=== PATIENT | female | born 1970 | race Caucasian/White ===

== ENCOUNTER 2017-06-20 19:09 | Emergency (ER) | payer MEDICAID ==
[~2017-06-20] VITALS: Wt 81.9 kg
[2017-06-20] MEDS ORDERED: KETOROLAC 30 MG INJ IM STA (20:05)
[2017-06-20] MEDS ORDERED: ASPI-826 PO (20:30)
--- NOTE | 2017-06-20 20:41 | ERD ---
ER Documentation Chief Complaint Chief Complaint c/o high bp/headache x 1 week HPI 46-year-old female complaining of headache 1 day. Patient stated that she had history of hypertension. She was given lisinopril by her PCP 1 month ago. She help a dry cough while on lisinopril. Her PCP changed her prescription to losartan a days ago. She reports getting headaches while taking losartan. Yesterday, her PCP changed her medication to amlodipine. She took amlodipine this morning. She did not have a headache after taking the medication. However , she started developing a headache around midday today. Described headache as a pressure-like sensation on top of her head. She took 2 Tylenols at home, and it helped some. But the headache has returned. She reports slight photophobia and occasional blurred vision. Denies nausea or vomiting. Denies fever or chills. Denies numbness, tingling, or weakness in her extremities. Denies chest pain. Denies palpitations. ROS All systems reviewed and are negative except as per history of present illness. Medications Home Meds Active Scripts Aspirin/Acetaminophen/Caffeine (Excedrin Extra Strength Caplet) 1 Each Tablet, 1 EACH PO Q6 Y for HEADACHE, #30 TAB Prov:THOM DUMONT Cathi SUBMARINE DIVER 06/20/17 Allergies Allergies: Coded Allergies: No Known Drug Allergies (Verified Allergy, Unknown, 06/20/17) PMhx/Soc Medical and Surgical Hx: pt denies Surgical Hx Hx Cardiac Disorders: Yes (HTN) Hx Miscellaneous Medical Probl: Yes (PRE-DM) Hx Alcohol Use: No Hx Substance Use: No Hx Tobacco Use: No Smoking Status: Never smoker Physical Exam Vitals Vital Signs Date Time Temp Pulse Resp B/P Pulse Ox O2 Delivery O2 Flow Rate FiO2 06/20/17 19:17 96.6 95 20 171/93 99 Physical Exam General: Well-developed, well-nourished, conscious and coherent, in no distress Skin: Warm and dry without rash, good texture and turgor Head: Normocephalic without evidence of trauma Eyes: Sclera and conjunctivae normal; pupils equal, round, and reactive to light; extraocular movements are intact. Bilateral sternocleidomastoid and upper trapezius muscle spasm noted. Neck: Supple without meningismus or adenopathy. Carotids are equal. Trachea midline. No bruits or JVD Chest: Normal AP diameter. Good expansion without retractions. Nontender. Lungs are clear to auscultate bilaterally with good tidal volume Heart: Regular rate and rhythm. No murmur, rub, or gallops heard Extremities: Full range of motion. Good strength bilaterally. No clubbing, cyanosis, or edema. Peripheral pulses are intact. Sensation intact Neuro: Alert and oriented 4; GCS 15. Cranial nerves II - XII intact. Motor sensory exam nonfocal. Moves all extremities. Deep tendon reflexes 2+ in all extremities. Speech clear. No pronator drift. Gait steady. Results 24 hrs Current Medications Medications (Trade) Dose Ordered Sig/Suzie Route PRN Reason Start Time Stop Time Status Last Admin Dose Admin Ketorolac Tromethamine (Toradol) 30 mg ONCE STAT IM 06/20/17 20:05 06/20/17 20:06 DC 06/20/17 20:13 Procedures/MDM Well-appearing 46-year-old female presented ED with headache 1 day. Patient has similar headaches in the past. Toradol IM given to the patient in the ED for pain. Patient reports improvement of headache after Toradol. Her headache is likely a tension type. Differentials include but not limited to migraine, cluster headache, tension headache, sinus or dental infection, TMJ syndrome, pseudotumor cerebri, meningitis, encephalitis, giant cell arteritis, glaucoma, subarachnoid hemorrhage, subdural or epidural hematoma, intracranial bleeding or tumor. Patient has history of hypertension, has recently changed her blood pressure medications. Patient blood pressure on presentation was 171/93 today. I feel this is due to her recent medication is not adequately controlling her blood pressure. I doubt the patient has hypertensive emergency. Patient has follow- up appointment with her PCP tomorrow. I have advised patient to discuss with her PCP on adjusting her blood pressure managed vacation to obtain adequate control. I do not feel emergent blood pressure control today is indicated. Patient appears well, stable for discharge and outpatient management. Medical decision making shared with patient and family. Education provided to patient and family. Patient and family expressed understanding of the plan. Medications on discharge: Excedrin. Follow-up: Primary care provider in 2-3 days or return to ED if worse. Disclaimer: Inadvertent spelling and grammatical errors are likely due to EHR/ dictation software use and do not reflect on the overall quality of patient care. Also, please note that the electronic time recorded on this note does not necessarily reflect the actual time of the patient encounter. Departure Diagnosis: Primary Impression: Headache Headache type: tension-type Headache chronicity pattern: acute headache Intractability: not intractable Qualified Code: G44.209 - Acute non intractable tension-type headache Additional Impression: HTN (hypertension) Hypertension type: essential hypertension Qualified Code: I10 - Essential hypertension Condition: Stable Patient Instructions: Self-Care for Headaches [facility] Usted se quinones hecho un examen mdico de control que le indica que no est en arleth condicin que requiera tratamiento urgente en el Departamento de Emergencia. Un estudio ms profundo y el tratamiento de alvarado condicin pueden esperar sin ningn riesgo hasta que usted sea atendida/o en el consultorio de alvarado mdico o arleth cl ahsan. Es responsabilidad suya arreglar arleth hannah para el seguimiento del annabella. MANEJO DE CONDICIONES NO URGENTES EN EL FUTURO 1) Si usted tiene un mdico de atencin primaria: Usted debera llamar a alvarado mdico de atencin primaria antes de venir al departamento de emergencia. Despus de las horas de consultorio, alvarado doctor o alvarado asociado/a est disponible por telfono. El mdico o enfermero de filipe en el servicio telefnico puede asesorarle por damion medio para atender el problema, o annabella contrario se puede programar arleth hannah. 2) Si usted no tiene un mdico de atencin primaria: Llame al mdico o clnica de referencia que aparece abajo beverly las horas de consultorio para hacer arleth hannah para que le vean. CLINICAS: [facility] 920 [phone] [address] [facility] 917 [phone] [address] [facility] 240 [phone] [address] [facility] [phone] [facility] [phone] [address] [facility]. [phone] [address] Additional Instructions: Llame al doctor MAANA y chelsea arleth HANNAH PARA DENTRO DE 1-2 HERNANDEZ.Dgale a la secretaria que nosotros le instruimos hacer esta hannah.Avise o llame si alvarado condicin se empeora antes de la hannah. Regresa aqui si peor o no mejor. THOM DUMONT. RAFFAELE Jun 20, 2017 20:41
== END 2017-06-20 20:44 | disposition home or self-care (01) ==
LOC: FTE 19:09
DX: G44.209 Tension-type headache, unspecified, not intractable (principal); I10 Essential (primary) hypertension
CPT/HCPCS: 96372; J1885; Z7502